=== PATIENT | male | born 2000 | race Two or more races ===

== ENCOUNTER 2022-04-11 23:53 | Emergency (ER) | payer OTHER ==
[~2022-04-11] VITALS: Ht 172.7 cm; Wt 88.5 kg
[2022-04-12] MEDS ORDERED: DICLOFENAC SODI75 MG PO (01:59)
== END 2022-04-12 02:20 | disposition home or self-care (01) ==
LOC: ER 23:53
DX: M12.561 Traumatic arthropathy, right knee (principal)